=== PATIENT | male | born 1950 | race Caucasian/White ===

== ENCOUNTER 2019-03-16 16:00 | Inpatient (IN) | payer OTHER ==
[~2019-03-16] VITALS: Ht 175.3 cm; Wt 97.5 kg
[~2019-03-16 16:00] MED LIST: AMLODIPINE BESYL5 MG PO; ASPIR 8181 MG PO; AUGMENTIN 875875 MG PO; CELEBREX 200 M200 M1 PO; DIAZEPAM 10 MG10 M2 PO; DIOVAN320 MG PO; FLEXERIL PO; IMDUR 60 MG TAB60 M1 PO; LAMICTAL100 MG PO; LANOXIN 0.120.125 M2 PO; LIPITOR20 MG PO; LITHIUM CARBON300 M3 PO; LOSARTAN POTAS100 MG PO; MEDROLDOSEPACK PO; METOPROLOL SUCC25 M1 PO; MOBIC15 MG PO; NEURONTIN 300300 M1 PO; NIACIN500 MG PO; NITROSTAT0.4 MG SL; NORCO 5-325 TA1 EACH PO; NOVOLOG100 UNIT/1 SUBQ; PANTOPRAZOLE SO40 M1 PO; TOPROL XL50 MG PO; TRICOR145 MG PO; TRILEPTAL300 MG PO; ZOLOFT 50 MG TA50 MG PO; [UNRECOGNIZED DRUG - REMARK] SUBQ
[2019-03-16] MEDS ORDERED: IMDUR 60 MG TAB60 M1 PO (16:26)
[2019-03-16 16:35] LABS: ABSOLUTE NEUTROPHILS 5.8 thou/uL (1.4-8.2); BASOPHILS 0.6 % (0.0-2.0); EOSINOPHILS 0.2 % (0.0-3.0); HEMATOCRIT 45.3 % (42.0-52.0); HEMOGLOBIN 15.7 gm/dL (14.0-18.0); LYMPHOCYTES 12.6 % (24.0-44.0); MCHC 34.6 g/dL (28.0-37.0); MCV 92.6 fL (80.0-100.0); MONOCYTES 1.8 % (1.0-8.0); PLATELET COUNT 247 thou/uL (150-400); POLYS 84.8 % (36.0-66.0); RBC 4.89 mil/uL (4.50-6.00); RDW 12.9 % (10.5-14.5); WBC 6.9 thou/uL (4.0-11.0)
[2019-03-16 16:38] LABS: BE(vivo) -4.3 mmol/L (-2 to +3); PCO2 50.6 mmHg (35.0-45.0); sO2 80.8 % (92.0-98.0)
[2019-03-16 16:39] LABS: CREATININE 1.5 mg/dL (0.7-1.3); POTASSIUM 4.1 mmol/L (3.5-5.1)
[2019-03-16 16:41] LABS: PO2 50.7 mmHg (80.0-100.0); pH 7.276 (7.360-7.450)
[2019-03-16 18:23] LABS: BE(vivo) -3.5 mmol/L (-2 to +3); HCO3 23.6 mmol/L (22.0-26.0); PCO2 49.9 mmHg (35.0-45.0); PO2 94.3 mmHg (80.0-100.0); pH 7.292 (7.360-7.450); sO2 96.4 % (92.0-98.0)
[2019-03-16 20:17] VITALS: BP 136/67
[2019-03-16 20:29] VITALS: BP 150/71
[2019-03-16 21:17] VITALS: BP 155/81
[2019-03-16 23:42] VITALS: BP 139/75
[2019-03-17] MEDS ORDERED: AMLODIPINE BESY10 MG PO (01:58)
[2019-03-17] MEDS ORDERED: BASAGLAR K100 UNIT/1 SUBQ (02:02)
[2019-03-17] MEDS ORDERED: CELEBREX 200 M200 M1 PO (02:03)
[2019-03-17] MEDS ORDERED: DIGOXIN125 MCG PO (02:06)
[2019-03-17] MEDS ORDERED: LAMICTAL100 MG PO (02:17)
[2019-03-17] MEDS ORDERED: LIPITOR40 MG PO (02:18)
[2019-03-17] MEDS ORDERED: LOSARTAN POTAS100 MG PO (02:19)
[2019-03-17] MEDS ORDERED: TOPROL XL100 MG PO (02:19)
[2019-03-17] MEDS ORDERED: NOVOLOG100 UNIT/1 SUBQ (02:20)
[2019-03-17] MEDS ORDERED: PROTONIX40 M1 PO (02:20)
[2019-03-17] MEDS ORDERED: TRICOR145 MG PO (02:21)
[2019-03-17] MEDS ORDERED: TRILEPTAL600 MG PO (02:21)
[2019-03-17] MEDS ORDERED: VALIUM5 MG PO (02:22)
[2019-03-17] MEDS ORDERED: SERTRALINE HCL50 MG PO (02:23)
[2019-03-17 04:36] VITALS: BP 119/57
[2019-03-17 05:13] LABS: BE(vivo) 2.9 mmol/L (-2 to +3); HCO3 28.2 mmol/L (22.0-26.0); PCO2 45.9 mmHg (35.0-45.0); PO2 74.6 mmHg (80.0-100.0); pH 7.407 (7.360-7.450)
--- NOTE | 2019-03-17 06:49 | NUR ---
ASSUMED CARE OF PT DURING ADMISSION TO THE UNIT. PT WAS LETHARGIC, UNABLE TO ANSWER QUESTIONS AND ON BIPAP. WAS AT BEDSIDE AND ANSWERED ASSMT QUESTIONS. PT STAYED ON BIPAP UNTIL 0300. TRIED RA BUT O2 SAT'S DROPPED TO 90%. 2L O2 VIA NC INITIATED, O2 SAT HAS BEEN 97-98%. PT SLOWLY BECAME MORE RESPONSIVE. THOUGHT HE WAS AT THE SURGERY CENTER, REORIENTED X 4. ASKED FOR FOOD, PT CHOSE [employer] W[employer], PROVIDED AND TOLERATED FINE, NO COUGHING. PT C/O PAIN IN R SHOULDER, TYLENOL PROVIDED. PT ABLE TO REST. NEW ABGs THIS AM SHOW IMPROVEMENT DOCUMENTED. CALLED, UPDATED OF PT'S STATUS. PROGRESSING WELL TOWARDS POC GOALS.
[2019-03-17 07:31] LABS: HEMATOCRIT 38.5 % (42.0-52.0); MCH 32.4 pg (26.0-34.0); MCHC 35.4 g/dL (28.0-37.0); MCV 91.8 fL (80.0-100.0); RBC 4.19 mil/uL (4.50-6.00); RDW 13.3 % (10.5-14.5); WBC 10.2 thou/uL (4.0-11.0)
[2019-03-17 07:32] LABS: HEMOGLOBIN 13.6 gm/dL (14.0-18.0)
[2019-03-17 07:49] VITALS: BP 128/47
[2019-03-17 07:53] LABS: CALCIUM 7.9 mg/dL (8.5-10.1); CREATININE 1.5 mg/dL (0.7-1.3); POTASSIUM 4.1 mmol/L (3.5-5.1)
--- NOTE | 2019-03-17 10:57 | NUR ---
Assumed care of pt at 0700. Pt awake and orientated x4. [place] at times. Pt on RA with saturations in mid-90s. Complaints of pain 8/10 in R shoulder but pt not wanting to take anything at this time. Have advised pt about the stress ongoing pain places on the body. Pt is aware but wants to wait a while longer before trying medication. Pt's is at bedside. Anticipate working with PT today. Cool pack system and stabilizers are in place. Pt is progressing toward POC/DC goals. Will continue to monitor and assess.
[2019-03-17 11:49] VITALS: BP 142/53
[2019-03-17 15:59] VITALS: BP 141/55
[2019-03-17 19:35] VITALS: BP 159/78
[2019-03-18 04:05] VITALS: BP 174/78
--- NOTE | 2019-03-18 04:11 | NUR ---
ASSUMED CARE FROM DAY SHIFT PT RESTING ON ROOM AIR SAT 94 % PAIN MEDICATION GIVEN TO CONTROL PAIN PILLS AND INJECTION , POLAR CARE TO RIGHT SHOULDER. O2 @ 2L APPLIED AT 0130 DUE TO PT SAT 87% PT DENIES SHORTNESS OF AIR . ,POWERS REMAIN PATENT WITH LARGE AMOUNT OF CLEAR YELLOW URINE, PT DRINKING WITHOUT NAUSEA.AGREE WITH CURRENT PLAN OF CARE
[2019-03-18 07:42] VITALS: BP 165/70
--- NOTE | 2019-03-18 10:35 | NUR ---
ASSUMED CARE OF PT AT 0700. PT IS A&Ox4. PT COMPLAINS OF PAIN 8/10 AT MORNING ASSESSMENT. PRN PAIN MEDICATION PROVIDED. UPON REASSESSMENT PT REPORTS REDUCTION OF PAIN TO 7/10. PT REPORTS WANTING TO WAIT A WHILE BEFORE TAKING ANYTHING FURTHER. AT SHIFT CHANGE PT WAS ON 2L NC AFTER DESATING DURING THE NIGHT. CURRENTLY RT HAS TITRATED PT BACK TO RA. WILL CONTINUE TO MONITOR PULSE OX. POLAR COOL PACK STILL IN PLACE, RUE REMAINS IMMOBILIZED. PT SEEMS FEARFUL OF DC D/T ONGOING PAIN. ANTICIPATED DC IS NOT YET KNOWN. PT IS PROGRESSING TOWARD POC/DC GOALS. WILL CONTINUE TO MONITOR AND ASSESS.
[2019-03-18 11:26] VITALS: BP 155/62
[2019-03-18 11:33] VITALS: BP 155/62
[2019-03-18 16:31] VITALS: BP 140/64
[2019-03-18 20:00] VITALS: BP 161/79
[2019-03-19 00:11] VITALS: BP 173/84
[2019-03-19 04:00] VITALS: BP 160/80
[2019-03-19 04:36] LABS: HEMATOCRIT 38.8 % (42.0-52.0); HEMOGLOBIN 13.9 gm/dL (14.0-18.0); MCH 32.6 pg (26.0-34.0); MCHC 35.7 g/dL (28.0-37.0); MCV 91.4 fL (80.0-100.0); RBC 4.25 mil/uL (4.50-6.00); RDW 12.9 % (10.5-14.5); WBC 8.1 thou/uL (4.0-11.0)
[2019-03-19 04:46] LABS: CALCIUM 8.8 mg/dL (8.5-10.1); CREATININE 1.2 mg/dL (0.7-1.3); MAGNESIUM 2.2 mg/dL (1.8-2.4); POTASSIUM 4.3 mmol/L (3.5-5.1)
[2019-03-19 07:32] VITALS: BP 161/83
--- NOTE | 2019-03-19 07:52 | EKG ---
[place] [address] [facility] [employer] [place] [address] ELECTROCARDIOGRAM REPORT Name: TA AMARAL Room #: 351-P ADM IN M.R.#: [id number] ������������������ Admission: 03/16/19 ������������������ Attend Phys: Stephon Mckinney MD Discharge: ������������������ Date of : 50 Report #: [id number] ����������������������������������������������������������������� [id number] THIS REPORT FOR: //name// [facility] ED Test Date: 2019-03-16 Test Time: 16:37:45 Pat Name: TA AMARAL Department: Room: [facility] Gender: M Power Regulator: WG : 1950 Requested By: Kelsea Brown Order Number: [id number] MD: Vincent Wu Measurements Intervals [place] Rate: 63 P: 53 NM: 202 QRS: -11 QRSD: 109 T: 10 QT: 468 QTc: 480 Interpretive Statements Sinus rhythm Nonspecific ST segment abnormality Borderline prolonged QT interval Compared to ECG 05/03/2000 10:28:30 QT interval has lengthened minimal nonspecific ST segment abnormality is now present Electronically Signed On 03-19-2019 7:52:38 CDT by Vincent Wu [email or web address] ��������������������������������������������� <ELECTRONICALLY SIGNED> ���������������������������������������� By: Vincent Wu MD, [facility] ��������������������������������������������� 03/19/19 0752 [id number] Vincent Wu MD, [facility] /EPI
[2019-03-19 11:02] VITALS: BP 154/75
--- NOTE | 2019-03-19 15:04 | NUR ---
ASSESSMENT: CM REVIEWED CHART AND MET WITH PATIENT AND HIS AT THE BEDSIDE. PT WAS ADMITTED DUE TO ASPIRATION PNEUMONIA AFTER A SHOULDER SURGERY AND HYPOXIA. PT REPORTS HE LIVES AT HOME WITH HIS IN A HOUSE. PT REPORTS HAVING 2 STEPS TO ENTER WITH NO HANDRAILS. PT REPORTS ALL HIS NEEDS ARE ON ONE LEVEL BUT DOES GO IN THE BASEMENT AT TIMES AND HAS ABOUT 14 STEPS WITH HANDRAILS. PT REPORTS HE AMBULATES INDEPENDENTLY. PT STATES THAT HE HAS NOT HAD HH IN THE PAST OR BEEN TO SNF. PT REPORTS THAT HE FEELS HH WOULD BE BENEFICIAL TO HIM AT DISCHARGE BECAUSE HIS WORKS [employer] AND HE IS ON ALOT OF MEDICATIONS SO WOULD BE HELPFUL TO HAVE SOMEONE SET UP HIS MEDICATIONS AND IS WANTING HH. CM ATTEMPTED TO CONTACT [employer] THE INSURANCE CONTACT FOR PATIENT AND HIS WORK COMP CASE AT [phone] [id number] AND LEFT VM. CM WILL CONTINUE TO FOLLOW TO ASSIST NEEDED.
[2019-03-19 15:44] VITALS: BP 139/67
--- NOTE | 2019-03-19 18:18 | NUR ---
PT PROGRESSING TOWARDS DISCHARGE GOALS..POWERS DC'D AND VOIDING WELL...AMBULATED IN REA WITH STANDBY ASSIST X 3 LAPS THIS TORIBIO..PAIN FAIRLY WELL CONTROLLED WITH FENTANYL AND PERCOCET...POLAR PACK USED FOR PAIN CONTROL..
[2019-03-19 19:47] VITALS: BP 137/71
[2019-03-20 04:29] VITALS: BP 153/72
--- NOTE | 2019-03-20 04:48 | NUR ---
HOURLY ROUNDING AND CHECKING ICE LEVEL IN PT POLAR PACK TO HELP WITH PAIN CONTROL. FALL PRECAUTIONS IN PLACE. PT A/0X4 AND IS RUNNING NSR ON MONITOR. PT USES URINAL AND STANDBY ASSIST TO BATHROOM AND LAST BM WAS 03/19. POC WITH IVPB AND ORAL/IV PAIN MEDICATION. MONITORING VSS WHICH ARE STABLE.
[2019-03-20 07:36] VITALS: BP 156/73
[2019-03-20 11:48] VITALS: BP 135/69
--- NOTE | 2019-03-20 14:38 | NUR ---
ON-GOING ASSESSMENT: AYAN SPOKE WITH [employer] AT [employer] [phone] [id number] WHO STATES THEY WILL APPROVE HH AND THAT PATIENT CAN USE [facility] AND SHE WILL JUST NEED THE DISCHARGE PAPERWORK FAXED TO HER. AYAN SPOKE WITH PATIENT AND HIS . THEY HAVE NO PREFERENCE OF HH AGENCY. AYAN SPOKE WITH [facility] WHO STATES THEY DO NOT GO TO [place]. REFERRAL WAS SENT TO [facility] WHO IS REVIEWING.
[2019-03-20] MEDS ORDERED: AUGMENTIN 875-1 EACH PO (15:09)
[2019-03-20 15:56] VITALS: BP 135/69
[2019-03-20 17:06] VITALS: BP 147/67
--- NOTE | 2019-03-20 17:53 | NUR ---
assumed care of pt at 0700. Pt has been NSR on tele. On RA. Pt is progressing well toward POC/DC goals. Occasional complaints of R shoulder pain managed with PRN medication. Pt was able to work with PT today and completed 15+ stairs with stand by assist. Pt's affect is more lively than in previous shifts. Anticipated DC this evening. Will continue to monitor and assess.
[2019-03-20 17:57] VITALS: BP 135/69
--- NOTE | 2019-03-21 10:33 | NUR ---
ON-GOING ASSESSMENT: CM SPOKE WITH [employer] (INSURANCE CONTACT FOR WORK COMP) [phone] [id number] WHO REPORTS THAT HH WILL BE COVERED FOR PATIENT AND WE CAN CHOSE [facility]. PT HAD NO PREFERENCE AND REFERRAL WAS SENT TO [facility] WHO STATES THEY CAN ACCEPT PATIENT. D/C ORDERS FAXED TO [facility] AND ALSO TO [employer] [facility] [employer].
== END 2019-03-20 20:30 | disposition home health service (06) | DRG 177 ==
LOC: ER 16:00 → 3W 19:21 → EROBS 19:21 → 3W 20:28 → ENTRNSPT 03-20 18:36 → 3W 03-20 20:30
PROVIDERS: Emergency Medicine; Nurse Practitioner; Pediatrics; ADMIT Internal Medicine
PROC: 5A09357 Assistance with Respiratory Ventilation, Less than 24 Consecutive Hours, Continuous Positive Airway Pressure (ICD-10-PCS; principal; 2019-03-16)
DX: J69.0 Pneumonitis due to inhalation of food and vomit (principal); J96.01 Acute respiratory failure with hypoxia; G92 Toxic encephalopathy; N18.3 Chronic kidney disease, stage 3 (moderate); E11.22 Type 2 diabetes mellitus with diabetic chronic kidney disease; I12.9 Hypertensive chronic kidney disease with stage 1 through stage 4 chronic kidney disease, or unspecified chronic kidney disease; F31.9 Bipolar disorder, unspecified; F41.0 Panic disorder [episodic paroxysmal anxiety]; I25.10 Atherosclerotic heart disease of native coronary artery without angina pectoris; Z87.828 Personal history of other (healed) physical injury and trauma; Z91.81 History of falling; Z87.891 Personal history of nicotine dependence; Z79.82 Long term (current) use of aspirin; Z79.4 Long term (current) use of insulin; Z79.899 Other long term (current) drug therapy; Z88.8 Allergy status to other drugs, medicaments and biological substances
CPT/HCPCS: 10879